=== PATIENT | female | born 1960 | race Caucasian/White ===

== ENCOUNTER → 2021-10-24 11:01 | Outpatient (CLI) | payer OTHER, SELFPAY ==
--- NOTE | 2021-10-24 11:05 | DI.RAD.S_ITS ---
PROCEDURE: XR WRIST LT MIN 3V INDICATIONS: Foosh - scaphoid tenderness TECHNIQUE: 4 views of the wrist were acquired. COMPARISON: None. FINDINGS: Bones: No fractures or dislocations. No suspicious bony lesions. Scaphoid view: Unremarkable Soft tissues: No suspicious soft tissue calcifications. IMPRESSION: Unremarkable left wrist radiographs. No fracture. Approved by: Mehran Silva M.D. on 10/24/2021 at 10:35
== END ==
PROVIDERS: Referring Provider Registered Nurse; Visit Provider Registered Nurse
DX: M25.532 Pain in left wrist (principal)
CPT/HCPCS: 73110